=== PATIENT | female | born 1950 | race Caucasian/White ===

== ENCOUNTER 2024-10-21 10:29 | Inpatient (IN) | payer OTHER ==
[2024-10-21 11:19] LABS: Absolute Lymphocytes (CBC) 1.3 K/uL (0.7-4.9); Absolute Monocytes 0.4 K/uL (0.1-1.3); Absolute Neutrophil 3.2 K/uL (1.8-8.0); Basophils % 0.8 % (0-1.3); Eosinophils % 0.6 % (0-4.4); Hematocrit 39.1 % (36.0-45.0); Hemoglobin 13.3 g/dL (12.0-15.0); Lymphocytes % 26.7 % (15.3-44.8); MCH 30.5 pg (27.0-35.0); MCV 89.6 fL (80-100); MPV 7.5 fL (7.6-11.3); Monocytes % 8.1 % (3.3-12.3); Neutrophils % 63.8 % (41.7-73.7); Nucleated Red Blood Cells % 0.1 % (0-0); Platelets 268 thou/uL (152-406); RBC Red Blood Cell Count 4.36 M/uL (3.86-4.86); Red Cell Distribution Width 13.6 % (12.1-15.2)
[2024-10-21 11:25] LABS: PT Prothrombin Time 11.3 SECONDS (10.0-13.0); Protime INR 0.99
[2024-10-21 11:32] LABS: Anion Gap 10.7 mEq/L (5.0-15.0); Potassium 3.7 mEq/L (3.5-5.1); Troponin High Sensitivity 7.3 pg/mL (<58.9)
--- NOTE | 2024-10-21 12:11 | RAD REPORT ---
EXAM: CT Head Brain Wo Cont HISTORY: left sided weakness, leg weakness COMPARISON: None TECHNIQUE: Multiple contiguous axial images were obtained for a CT of the brain without contrast. Sag ittal and coronal reformats were performed. One or more of the following dose reduction techniques were used: Automated exposure control, adjus tment of the mA and kV according to patient size, and iterative reconstruction. Unless otherwise specified, incidental findings do not require dedicated imaging follow-up. FINDINGS: No evidence of hydrocephalus, intracranial hemorrhage, or extra-axial fluid collection. The brain is normal in morphology. The calvarium is intact. The visualized paranasal sinuses and mastoid air cells are essentially clear . IMPRESSION: No evidence of acute intracranial abnormality.
--- NOTE | 2024-10-21 12:16 | RAD REPORT ---
EXAMINATION: CTA HEAD CLINICAL INDICATION: Female, 74 years old. weakness/numbness left side TECHNIQUE: Axial CT images were obtained through the head after intravenous contrast utilizing angiog raphic protocol with 3D post-processing (maximum intensity projection images, volume rendered images and/or shaded surface rendered images). One or more of the following dose reduction technique s were used: Automated exposure control, adjustment of the mA and/or kV according to patient size, and/or iterative reconstruction. Unless otherwise specified, incidental findings do not require dedic ated imaging follow-up. COMPARISON: No prior exam. FINDINGS: ICA: The petrous, cavernous, and supraclinoid segments of the bilateral internal carotid arteries are normal. MEDINA: Anterior cerebral arteries are normal bilaterally. Azygos configuration of the A2 segment, and h ypoplastic appearance of the right A1 segment The anterior communicating artery is patent. MCA: Middle cerebral arteries are normal bilaterally. OTHER SPORTS COACH OR INSTRUCTOR: Short segment of moderate to severe narrowing along the proximal to mid right V2 segment, see co ta image 104/225. Posterior cerebral arteries are otherwise patent proximally. Vertebrobasilar: The vertebral arteries are patent. The basilar artery is normal in appearance. 3D images confirm these findings. IMPRESSION: Short segment of moderate to severe narrowing of the proximal to mid right P2. Otherwise patent proximal vessels of the [place].
--- NOTE | 2024-10-21 12:17 | RAD REPORT ---
EXAMINATION: CT Neck Angio CLINICAL INDICATION: Female, 74 years old. [facility] left sided weakness/numb Bed Name: 7 TECHNIQUE: Axial CT images were obtained from the aortic arch to the skull base after intravenous con trast utilizing angiographic protocol. Multiplanar reformats, as well as 3D post-processing (maximum intensity projection images, volume rendered images and/or shaded surface rendered images) w ere generated and reviewed. One or more of the following dose reduction techniques were used: Automated exposure control, adjustment of the mA and/or kV according to patient size, and/or iterativ e reconstruction. Unless otherwise specified, incidental findings do not require dedicated imaging follow-up. COMPARISON: No prior exam. FINDINGS: AORTA: The imaged aortic arch is normal. Normal three-vessel configuration of the arch. CCA: No artifact The common carotid arteries are patent and normal in caliber. ICA/ECA: Bilateral internal and external carotid arteries are patent. There is no significant interna l carotid artery stenosis. VERTEBRAL: The cervical vertebral arteries are patent to the skull base. Vertebral arteries are codom inant. SOFT TISSUE: No significant neck soft tissue abnormalities. The visualized lung apices are clear. 3D images confirm these findings. IMPRESSION: No significant flow abnormality of the neck vessels is identified. NASCET criteria used to quantify ICA stenosis, with the following grading scheme: Mild 0-49% stenosis Moderate 50-69% stenosis Severe 70-99% stenosis Reference: [place] Symptomatic Carotid Endarterectomy Trial Collaborators; Nai ALVARADO, Cuca CASTANEDA, Consuelo RB, et al. Beneficial effect of carotid endarterectomy in symptomatic patients with high-grade carotid stenosis. N Engl J Med. 1990Apr 08;325(7):445-53.
--- NOTE | 2024-10-21 12:18 | RAD REPORT ---
EXAMINATION: ONE VIEW CHEST XR CLINICAL INDICATION: Female, 74 years old.,left sided weakness TECHNIQUE: Frontal chest projection is submitted. Examination is limited by patient positioning and t echnique. COMPARISON: No prior exam. FINDINGS: The lungs are well inflated and clear. No pneumothorax or sizable effusion. The heart is normal in s ize. Mediastinal contours are unremarkable. IMPRESSION: No acute intrathoracic abnormalities.
--- NOTE | 2024-10-21 13:19 | ER ---
Nurse's Notes [facility] Name: Em Diggs Age: 74 yrs Sex: Female : 1950 Arrival Date: 10/21/2024 Time: 10:29 Bed 13 Private MD: Diagnosis: Cerebral infarction, unspecified;Weakness;Paresthesia of skin Presentation: 10/21 10:52 Chief complaint: Patient states: Sudden onset of L sided numbness, started Friday ph night at 0930, was seen in ED in [place], states that the doctor there did not think it was a stroke. Came to ED today because she was concerned that symptoms are not improving. Coronavirus screen: Vaccine status:. Ebola Screen: No symptoms or risks identified at this time. Initial Sepsis Screen: Does the patient meet any 2 criteria? No. Patient's initial sepsis screen is negative. Does the patient have a suspected source of infection? No. Patient's initial sepsis screen is negative. Risk Assessment: Do you want to hurt yourself or someone else? Patient reports no desire to harm self or others. Onset of symptoms was October 21, 2024. 10:52 Method Of Arrival: Ambulatory ph 10:52 Acuity: LEELEE 3 ph Triage Assessment: 11:03 General: Appears in no apparent distress. comfortable, slender, well groomed, Behavior ph is calm, cooperative, appropriate for age. Pain: Denies pain. Neuro: Level of Consciousness is awake, alert, obeys commands, Oriented to person, place, time, situation, Reports numbness in L face, L arm, L leg. Cardiovascular: Capillary refill < 3 seconds in bilateral fingers Patient's skin is warm and dry. Respiratory: Airway is patent Respiratory effort is even, unlabored, Respiratory pattern is regular, symmetrical. Musculoskeletal: Range of motion: intact in all extremities. 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 - Infectious Disease History:: Denies. - Social history:: Smoking status: Patient denies any tobacco usage or history of. - Family history:: not pertinent. - Hospitalizations: : No recent hospitalization is reported. Screenin:03 [facility] ED Fall Risk Assessment (Adult) History of falling in the last 3 months, ph including since admission No falls in past 3 months (0 pts) Confusion or Disorientation No (0 pts) Intoxicated or Sedated No (0 pts) Impaired Gait No (0 pts) Mobility Assist Device Used No (0 pt) Altered Elimination No (0 pt) Score/Fall Risk Level 0 - 2 = Low Risk Oriented to surroundings, Maintained a safe environment, Hourly rounding (assess needs \T\ fall precautionary measures) done. Abuse screen: Denies threats or abuse. Denies injuries from another. Nutritional screening: No deficits noted. Tuberculosis screening: No symptoms or risk factors identified. 13:00 [place] Swallow Protocol Exclusion Criteria: Unable to remain alert for testing: No NPO ph for medical/surgical reason by provider order No Tracheostomy tube present No No thin liquids due to preexisting dysphagia/baseline modified diet thickened liquids No Brief Cognitive Screen What is your name? Normal, Where are you right now? Normal, What year is it? Normal. Oral Mechanism Examination Facial Symmetry: Normal, Motion: Normal, Lip Closure: Normal, Oral Mechanism Result: Normal. 3 oz Water Swallow Challenge: Pt able to drink all water without stopping, coughing, choking or throat clearing: Yes Result: PASS. Assessment: 11:05 Reassessment: Pt taken to CT. ph 12:00 Reassessment: Patient appears in no apparent distress at this time. Patient and/or ph family updated on plan of care and expected duration. Pain level reassessed. Patient is alert, oriented x 3, equal unlabored respirations, skin warm/dry/pink. Vital Signs: 10:52 BP 155 / 77; Pulse 67; Resp 18; Temp 98.1; Pulse Ox 100% on R/A; Weight 61.23 kg; ph Height 5 ft. 5 in. ; 12:00 BP 137 / 73; Pulse 66; Resp 18; Pulse Ox 100% on R/A; ph 13:00 BP 144 / 74; Pulse 63; Resp 18; Pulse Ox 98% on R/A; ph 14:00 BP 151 / 82; Pulse 64; Resp 18; Pulse Ox 100% on R/A; ph 10:52 Body Mass Index 22.46 (61.23 kg, 165.1 cm) ph [place] Coma Score: 12:00 Eye Response: spontaneous(4). Motor Response: obeys commands(6). Verbal Response: ph oriented(5). Total: 15. NIH Stroke Scale Scores: 10:00 NIHSS Score: 1 ph ED Course: 10:32 Patient arrived in ED. im 10:34 Jersey Lao MD is Attending Physician. rn 10:39 Rosa Elena Christian RN is Primary Nurse. ph 11:01 Triage completed. ph 11:02 Arm band placed on Patient placed in an exam room, on a stretcher, on alarm security or surveillance monitor, ph on pulse oximetry. 11:03 EKG done, by ED staff, reviewed by Jersey Lao MD. ph 11:04 Initial lab(s) drawn, by ED staff, sent to lab. Inserted saline lock: 20 gauge in right ph forearm, using aseptic technique. Blood collected. Flushed with 10 mL NS. 11:05 Patient has correct armband on for positive identification. Bed in low position. Call ph light in reach. Side rails up X 1. Client placed on continuous cardiac and pulse oximetry monitoring. NIBP monitoring applied. ekg monitor on. Door closed. Noise minimized. Warm blanket given. Pillow given. 11:05 Protime (+inr) Sent. ph 11:05 Ptt, Activated Sent. ph 11:05 CBC with Diff Sent. ph 11:05 High Sensitivity Troponin Sent. ph 11:18 CT Head Brain wo Cont In Process Unspecified. EDMS 11:18 CT Head Angio In Process Unspecified. EDMS 11:18 CT Neck Angio In Process Unspecified. EDMS 11:22 Stroke CXR 1 View In Process Unspecified. EDMS 13:18 Claudy Solorio PA is Hospitalizing Provider. rn 15:00 No provider procedures requiring assistance completed. Patient admitted, IV remains in ph place. 19:17 Claudy Solorio PA is Hospitalizing Provider. rn Administered Medications: 13:55 Drug: Aspirin PO Chewable Tablet 324 mg PO once; 81 mg tablets x 4 Route: PO; bp 14:30 Follow up: Response: No adverse reaction ph 13:55 Drug: foLIC Acid IVPB 1 mg IVPB once Route: IVPB; Site: right forearm; bp 14:30 Follow up: Response: No adverse reaction; IV Status: Completed infusion ph Medication: 11:05 VIS not applicable for this client. ph Outcome: 13:18 Decision to Hospitalize by Provider. rn 15:00 Admitted to ER Hold. Please see [facility] for further documentation. ph 15:00 Condition: stable 15:00 Instructed on the need for admit, 10/22 13:33 Patient left the ED. NIH Stroke Scale - NIH Stroke Score Date: 10/21/2024 Time: 10:00 Total Score = 1 10. Dysarthria (speech clarity - read or repeat words) - 0(Normal) 11. Extinction and Inattention (visual/tactile/auditory/spatial/personal) - 0(No abnormality) 1a. Level of Consciousness (LOC) - 0(Alert) 1b. Level of Consciousness (LOC) (Month \T\ Age) - 0(Both) 1c. LOC Commands (Open \T\ Closes Eyes/Rotating Field Assembler) - 0(Both) 2. Best Gaze (Lateral Gaze Paresis) - 0(Normal) 3. Visual Field Loss - 0(No visual loss) 4. Facial Palsy - 0(Normal) 5a. Left Arm: Motor (10-second hold) - 0(No drift) 5b. Right Arm: Motor (10-second hold) - 0(No drift) 6a. Left Leg: Motor (5-second hold - always test supine) - 0(No drift) 6b. Right Leg: Motor (5-second hold - always test supine) - 0(No drift) 7. Limb Ataxia (finger/nose \T\ heel/armstrong - test with eyes open) - 0(Absent) 8. Sensory Loss (pinprick arms/legs/face) - 1(Mild to moderate loss) 9. Best Language: Aphasia (description/naming/reading) - 0(No aphasia) Initials: ph Signatures: Dispatcher [employer] EDMelissa Copeland RN RN iw Jersey Lao MD MD rn Hall, Patricia, RN RN ph Peltier, Brian, RN RN bp Mendoza, Itzel im
--- NOTE | 2024-10-21 13:19 | EDPHYS ---
Physician Documentation [facility] Name: Em Diggs Age: 74 yrs Sex: Female : 1950 Arrival Date: 10/21/2024 Time: 10:29 Bed 13 Private MD: ED Physician Jersey Lao HPI: 10/21 11:34 This 74 yrs old Female presents to ER via Ambulatory with complaints of Numbness - left rn side. 11:34 The patient's problem is reported as paresthesias, in left upper extremity, in left rn lower extremity, in left side of face, weakness, in the left lower extremity. Onset: The symptoms/episode began/occurred 2 day(s) ago. Duration: The episode is continuous. The symptoms are alleviated by nothing. The symptoms are aggravated by nothing. Severity of symptoms: At their worst the symptoms were mild in the emergency department the symptoms are unchanged. The patient has not experienced similar symptoms in the past. Patient reports sudden onset left-sided numbness along with some weakness in the left leg 2 days ago while in [place]. States went to ER and was discharged. Symptoms have persisted. No fall or head injury. No spinal injury. No back pain. No neck pain. No fever or chills.. 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 - Infectious Disease History:: Denies. - Social history:: Smoking status: Patient denies any tobacco usage or history of. - Family history:: not pertinent. - Hospitalizations: : No recent hospitalization is reported. ROS: 11:37 Constitutional: Negative for fever, chills, and weight loss, Neck: Negative for injury, rn pain, and swelling, Cardiovascular: Negative for chest pain, palpitations, and edema, Respiratory: Negative for shortness of breath, cough, wheezing, and pleuritic chest pain, Abdomen/GI: Negative for abdominal pain, nausea, vomiting, diarrhea, and constipation, Back: Negative for injury and pain, MS/Extremity: Negative for injury and deformity, Neuro: Positive for left-sided numbness and tingling with leg weakness Exam: 11:37 Constitutional: This is a well developed, well nourished patient who is awake, alert, rn and in no acute distress. Patient ambulatory to room with assistance of Head/Face: Normocephalic, atraumatic. Cardiovascular: Regular rate and rhythm . No pulse deficits. Respiratory: No increased work of breathing, no retractions or nasal flaring. MS/ Extremity: Pulses equal, no cyanosis. Neurovascular intact. Full, normal range of motion. Equal circumference. Neuro: Awake and alert, GCS 15, oriented to person, place, time, and situation. Cranial nerves II-XII grossly intact. Slight drift of the left lower extremity. No drift of the left upper extremity. Decreased sensation to soft touch left upper and left lower extremity. Left side of face with numbness and decreased sensation. No facial droop. No speech problem. Vital Signs: 10:52 BP 155 / 77; Pulse 67; Resp 18; Temp 98.1; Pulse Ox 100% on R/A; Weight 61.23 kg; ph Height 5 ft. 5 in. ; 12:00 BP 137 / 73; Pulse 66; Resp 18; Pulse Ox 100% on R/A; ph 13:00 BP 144 / 74; Pulse 63; Resp 18; Pulse Ox 98% on R/A; ph 14:00 BP 151 / 82; Pulse 64; Resp 18; Pulse Ox 100% on R/A; ph 10:52 Body Mass Index 22.46 (61.23 kg, 165.1 cm) ph NIH Stroke Scale Scores: 10:00 NIHSS Score: 1 ph [place] Coma Score: 12:00 Eye Response: spontaneous(4). Motor Response: obeys commands(6). Verbal Response: ph oriented(5). Total: 15. MDM: 10:34 Medical Screening Exam initiated rn 10:52 ED course: Onset of symptoms were Friday night. Outside of TNK window if this is a rn cerebral infarction. 13:17 Differential diagnosis: CVA, metabolic disorder. Data reviewed: vital signs, nurses rn notes. Consideration of Admission/Observation Patient was admitted/placed on observation. Escalation of care including admission/observation considered. Counseling: I had a detailed discussion with the patient and/or guardian regarding the historical points, exam findings, and any diagnostic results supporting the discharge/admit diagnosis, lab results, radiology results, the need for further work-up and treatment in the hospital. 10/21 10:49 Order name: CBC with Diff; Complete Time: 11: rn 10/21 10:49 Order name: Basic Metabolic Panel; Complete Time: : rn 10/21 10:49 Order name: Protime (+inr); Complete Time: 11: rn 10/21 10:49 Order name: Ptt, Activated; Complete Time: : rn 10/21 10:49 Order name: High Sensitivity Troponin; Complete Time: : rn 10/21 15:33 Order name: Comprehensive Metabolic Panel [facility] 10/21 15:33 Order name: CBC with Automated Diff [facility] 10/21 15:33 Order name: CBC with Automated Diff [facility] 10/21 15:33 Order name: Lipid Profile [facility] 10/21 15:33 Order name: Lipid Profile [facility] 10/21 16:39 Order name: Thyroid Stimulating Hormone [facility] 10/21 21:00 Order name: Hemoglobin A1c [facility] 10/21 10:49 Order name: CT Head Brain wo Cont; Complete Time: 12: rn 10/21 10:49 Order name: CT Head Angio; Complete Time: 12: rn 10/21 10:49 Order name: CT Neck Angio; Complete Time: 12: rn 10/21 10:49 Order name: Stroke CXR 1 View; Complete Time: 12: rn 10/21 15:33 Order name: Echo with Doppler [facility] 10/21 16:54 Order name: MRI [facility] 10/21 15:33 Order name: IRF Screen [facility] 10/21 15:33 Order name: Physical Therapy Consult [facility] 10/21 15:33 Order name: Speech Therapy Consult [facility] 10/21 15:33 Order name: EKG Electrocardiogram [facility] 10/21 10:49 Order name: IV Start; Complete Time: :10/21 10:49 Order name: Accucheck; Complete Time: :10/21 10:49 Order name: Cardiac monitoring; Complete Time: :10/21 10:49 Order name: EKG - Nurse/Tech; Complete Time: 11:10/21 10:49 Order name: Labs collected and sent; Complete Time: :10/21 10:49 Order name: NPO; Complete Time: 11:05 rn 10/21 10:49 Order name: O2 Per Protocol; Complete Time: 11:05 rn 10/21 10:49 Order name: O2 Sat Monitoring; Complete Time: 11:05 rn 10/21 10:49 Order name: Stroke Swallow Screen; Complete Time: 12:28 rn Administered Medications: 13:55 Drug: Aspirin PO Chewable Tablet 324 mg PO once; 81 mg tablets x 4 Route: PO; bp 14:30 Follow up: Response: No adverse reaction ph 13:55 Drug: foLIC Acid IVPB 1 mg IVPB once Route: IVPB; Site: right forearm; bp 14:30 Follow up: Response: No adverse reaction; IV Status: Completed infusion ph Disposition Summary: 10/21/24 13:18 Hospitalization Ordered Notes: Hospitalization Status: Inpatient Admission rn Condition: Stable rn Problem: new rn Symptoms: are unchanged rn Bed/Room Type: Standard rn Provider: Claudy Solorio(10/21/24 19:17) rn Location: Telemetry/MedSurg (Inpatient)(10/22/24 12:53) [email or web address] Room Assignment: [facility](10/22/24 12:53) jl7 Diagnosis - Cerebral infarction, unspecified rn - Weakness rn - Paresthesia of skin rn Forms: - Medication Reconciliation Form rn - SBAR form rn - Leadership Thank You Letter rn NIH Stroke Scale - NIH Stroke Score Date: 10/21/2024 Time: 10:00 Total Score = 1 10. Dysarthria (speech clarity - read or repeat words) - 0(Normal) 11. Extinction and Inattention (visual/tactile/auditory/spatial/personal) - 0(No abnormality) 1a. Level of Consciousness (LOC) - 0(Alert) 1b. Level of Consciousness (LOC) (Month \T\ Age) - 0(Both) 1c. LOC Commands (Open \T\ Closes Eyes/Manager Pmo) - 0(Both) 2. Best Gaze (Lateral Gaze Paresis) - 0(Normal) 3. Visual Field Loss - 0(No visual loss) 4. Facial Palsy - 0(Normal) 5a. Left Arm: Motor (10-second hold) - 0(No drift) 5b. Right Arm: Motor (10-second hold) - 0(No drift) 6a. Left Leg: Motor (5-second hold - always test supine) - 0(No drift) 6b. Right Leg: Motor (5-second hold - always test supine) - 0(No drift) 7. Limb Ataxia (finger/nose \T\ heel/armstrong - test with eyes open) - 0(Absent) 8. Sensory Loss (pinprick arms/legs/face) - 1(Mild to moderate loss) 9. Best Language: Aphasia (description/naming/reading) - 0(No aphasia) Initials: ph Signatures: Dispatcher [employer] EDMS Jersey Lao MD MD rn Hall, Patricia RN RN ph Kirby Orozco RN RN jl7 Will Guillaume, RN RN Mary Chery rv1 Corrections: (The following items were deleted from the chart) 10:50 10:50 Head Brain Wo Cont+CT.RAD.BRZ ordered. EDMS EDMS 10:50 10:50 CBC+H.LAB.BRZ ordered. EDMS EDMS 10:50 10:50 BASIC METABOLIC PANEL+C.LAB.BRZ ordered. EDMS EDMS 10:50 10:50 PROTIME (+INR)+COAG.LAB.BRZ ordered. EDMS EDMS 10:50 10:50 PTT, ACTIVATED+COAG.LAB.BRZ ordered. EDMS EDMS 10:50 10:50 Troponin High Sensitivity+C.LAB.BRZ ordered. EDMS EDMS 10:50 10:50 Head Angio+CT.RAD.BRZ ordered. EDMS EDMS 10:50 10:50 Neck Angio+CT.RAD.BRZ ordered. EDMS EDMS 10:50 10:50 CT-STROKE BRAIN W/O CONTRAST+CT.RAD.BRZ ordered. EDMS EDMS 10:50 10:50 Chest Single View+RAD.RAD.BRZ ordered. EDMS EDMS 19:17 13:18 Claudy Solorio rn rn 19:17 13:18 Telemetry/MedSurg (Inpatient) rn rv1 19:17 13:18 rn rv1 10/22 12:53 10/21 19:17 BR ER HOLD [facility] jl7 10/22 12:53 10/21 19:17 ERHOLD- [facility]
[2024-10-21] MEDS ORDERED: ASPIRIN 81 MG CHEWABLE TABLET ONE (13:50)
[2024-10-21] MEDS ORDERED: FOLIC ACID 5 MG/ML VIAL ONE (13:51)
--- NOTE | 2024-10-21 14:05 | P.HP ---
Certification for Inpatient With expected LOS: >2 Midnights Patient will require the following post-hospital care: None Practitioner: I am a practitioner with admitting privileges, knowledge of patient current condition, hospital course, and medical plan of care. Services: Services provided to patient in accordance with Admission requirements found in Title 42 Section 412.3 of the Code of Federal Regulations Patient History Date of Service: 10/21/24 Reason for admission: Left-sided numbness and weakness History of Present Illness: 74-year-old patient presents with left-sided tingling and numbness for the last 2 days, she was traveling out of state at the time, she went to the ER in [place] 2 days back, they did not find any acute problem, discharged her to go home, after she came home her symptoms were not getting any better, now she feels like mild weakness on the left side, so she presented to the emergency room. She has chronic issues with sinusitis, chronic constipation and also some bleeding from hemorrhoids but no recent change. She denies any speech or swallowing trouble. She denies any blurry or double vision. Other than that she denies any other acute complaints. No headache or blackouts. No cough or sputum production. No chest pain or shortness of breath. No nausea or vomiting. No abdominal pain. No blood in the urine. No fever. No lower extremity edema. No joint pains. No recent change in the weight. Review of systems: All other 10 point review of systems are negative other than as mentioned above. Allergies and medications: Reviewed, as per [facility] EMR. Past medical history: Hypothyroidism Past surgical history: Right breast cyst removal Social history: No smoking or drugs. Have a couple of drinks every day. Family history: No family history of NC or CVA Physical examination: Vital signs: Reviewed, as per EMR. General appearance: Alert and comfortable HEENT: Extraocular movements intact, oral mucosa moist. CVS: Normal S1-S2 Lungs: Clear to auscultation bilaterally Abdomen: Soft, bowel sounds present, no tenderness Extremities: No lower extremity edema GOAL UMPIRE: AAO x 3/3, Moves all 4 extremities, Right side UE and LE power 5/5, left side UE and LE power 4-5/5. No facial weakness. Musculoskeletal: No obvious joint swelling or tenderness Home medications list reviewed: Yes - Past Medical/Surgical History Diabetic: No Physical Examination - Studies Laboratory Data (last 24 hrs) 10/21/24 10/21/24 10/21/24 11:05 11:05 11:05 WBC 5.00 Hgb 13.3 Hct 39.1 Plt Count 268 PT 11.3 INR 0.99 APTT 32.0 Sodium 137 Potassium 3.7 BUN 11 Creatinine 0.71 Glucose 105 Assessment and Plan - Problems (Diagnosis) (1) Acute stroke due to ischemia Current Visit: Yes Status: Acute - Plan Assesment and plan: 1. Acute stroke with left-sided numbness and weakness: Neurology consult requested, start aspirin and statin for now, CT head and CTA head and neck negative, will get an MRI scan and echocardiogram, will request physical therapy and speech evaluation, further management as per neurology. Check Lipid profile tomorrow. 2. Hypothyroidism: Continue levothyroxine. 3. 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 DVT Prophylaxis: Lovenox Code status: full code I Discussed all of the above-mentioned plan with the patient, and her at bedside, they both understand and agrees with the plan. I discussed advanced d irectives with the patient, her Elijah is the POA. - Advance Directives Does patient have a Living Will: No Does patient have a Durable POA for Healthcare: No
[2024-10-21] MEDS ORDERED: ACETAMINOPHEN 500 MG TAB PO PRN (15:23)
[2024-10-21] MEDS ORDERED: ZOLPIDEM TARTRATE 5 MG TABLET PO PRN (15:23)
[2024-10-21] MEDS: NA CHLORIDE 0.9% 1,000 ML IV SCH (16:00)
[2024-10-21] MEDS: ENOXAPARIN 40 MG/0.4 ML SQ SCH (16:00)
[2024-10-21 16:34] LABS: Albumin 3.6 g/dL (3.4-5.0); Albumin/Globulin Ratio 1.2 (1.1-1.8); Anion Gap 9.5 mEq/L (5.0-15.0); Bilirubin Total 0.4 mg/dL (0.2-1.0); Globulin 3.1 g/dL (2.3-3.5); Potassium 3.5 mEq/L (3.5-5.1); Protein, Total 6.7 g/dL (6.4-8.2)
--- NOTE | 2024-10-21 16:53 | RAD REPORT ---
EXAMINATION: MRI BRAIN WITHOUT CONTRAST CLINICAL INDICATION: Female, 74 years old. left sided numbness and weakness TECHNIQUE: Multiplanar multisequence MR images of the brain were obtained without intravenous contras t. Unless otherwise specified, incidental findings do not require dedicated imaging follow-up. [id number]. COMPARISON: Same-day head CT FINDINGS: INTRACRANIAL: Small acute infarct in the right thalamic/posterior limb of the internal capsule region measuring approximately 8 x 5 mm. No significant mass effect or midline shift.No hydrocephalus. Mild chronic small vessel ischemic changes. VASCULATURE: Normal signal voids in the larger intracranial arteries and dural venous sinuses. SINUSES: The paranasal sinuses are clear.No mastoid effusions. BONE: The marrow signal pattern is within normal limits. IMPRESSION: Small acute right basal ganglia/thalamic lacunar infarct.
[2024-10-21 17:06] VITALS: BMI 22.4
[2024-10-21] MEDS ORDERED: NA CHLORIDE 0.9% 1,000 ML ONE (18:13)
[2024-10-21] MEDS ORDERED: ENOXAPARIN 40 MG/0.4 ML SQ ONE (18:13)
[2024-10-21] MEDS: ATORVASTATIN 40 MG TAB PO SCH (21:00)
[2024-10-21] MEDS ORDERED: ATORVASTATIN 40 MG TAB ONE (21:41)
[2024-10-22 04:43] LABS: Absolute Eosinophils 0.1 K/uL (0-0.5); Absolute Lymphocytes (CBC) 2.6 K/uL (0.7-4.9); Absolute Monocytes 0.5 K/uL (0.1-1.3); Absolute Neutrophil 2.8 K/uL (1.8-8.0); Basophils % 0.6 % (0-1.3); Eosinophils % 1.7 % (0-4.4); Hematocrit 36.3 % (36.0-45.0); Hemoglobin 12.5 g/dL (12.0-15.0); MCH 30.3 pg (27.0-35.0); MCHC 34.3 g/dL (32.0-36.0); MCV 88.2 fL (80-100); MPV 7.5 fL (7.6-11.3); Monocytes % 7.8 % (3.3-12.3); Neutrophils % 46.9 % (41.7-73.7); Platelets 268 thou/uL (152-406); RBC Red Blood Cell Count 4.12 M/uL (3.86-4.86); Red Cell Distribution Width 13.8 % (12.1-15.2)
[2024-10-22] MEDS ORDERED: CLOPIDOGREL 75 MG TABLET ONE (08:20)
[2024-10-22] MEDS ORDERED: ENOXAPARIN 40 MG/0.4 ML SQ ONE (08:21)
[2024-10-22] MEDS ORDERED: ASPIRIN 81 MG CHEWABLE TABLET ONE (08:21)
[2024-10-22] MEDS ORDERED: NA CHLORIDE 0.9% 1,000 ML ONE (08:47)
[2024-10-22] MEDS: CLOPIDOGREL 75 MG TABLET PO SCH (09:00)
[2024-10-22] MEDS: ASPIRIN EC 81 MG TAB PO SCH (09:00)
--- NOTE | 2024-10-22 10:49 | P.PN ---
Subjective Date of Service: 10/22/24 Chief Complaint: Left-sided numbness and weakness Subjective: No chest pain or shortness of breath. No nausea or vomiting. No abdominal pain. No obvious bleeding other than hemorrhoidal bleeding. Looks comfortable in the bed. c/o Left-sided tingling, numbness and weakness, no lianna or improvement. Objective: General appearance: Alert and comfortable CVS: Normal S1 and S2 Lungs: Clear to auscultation bilaterally Abdomen: Soft, bowel sounds present, no tenderness Extremities: No pedal edema CLINICAL OUTCOMES MANAGER: No Facial weakness, moves all 4 extremities, right side 5/ 5, left side 4- 5/5 Physical Examination - Vital Signs Temperature: 97.4 F Blood Pressure: 127/65 Pulse: 62 Respirations: 18 Pulse Ox (%): 100 - Studies Laboratory Data (last 24 hrs) 10/21/24 10/21/24 10/21/24 11:05 11:05 11:05 WBC 5.00 Hgb 13.3 Hct 39.1 Plt Count 268 PT 11.3 INR 0.99 APTT 32.0 Sodium 137 Potassium 3.7 BUN 11 Creatinine 0.71 Glucose 105 Assessment And Plan - Current Problems (Diagnosis) (1) Acute stroke due to ischemia Current Visit: Yes Status: Acute - Plan Assesment and plan: 1. Acute stroke with left-sided numbness and weakness: Neurology consult requested, aspirin, plavix and statin for now, CT head and CTA head and neck negative -MRI scan showed a right basal ganglia and thalamic stroke -echocardiogram pending -physical therapy at bedside, they are recommending home with outpatient therapy -further management as per neurology. 2. Hypothyroidism: Continue levothyroxine. 3. 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 DVT Prophylaxis: Lovenox Code status: full code I Discussed all of the above-mentioned plan with the patient, and her at bedside, probably home tomorrow, if echo looks good and cleared by neurology. Discharge Plan: Home Plan to discharge in: 24 Hours
--- NOTE | 2024-10-22 12:57 | ECHO ---
HEIGHT: 5 ft 5 in WEIGHT: 134 lb 15.825 oz DATE OF STUDY: 10/22/[address]: Claudy Solorio 2-DIMENSIONAL: YES M.MODE: YES DOPPLER: YES COLOR FLOW: YES TDS: PORTABLE: YES DEFINITY: BUBBLE STUDY: DIAGNOSIS: STROKE CARDIAC HISTORY: CATHERIZATION: NO SURGERY: NO PROSTHETIC VALVE: NO PACEMAKER: NO MEASUREMENTS (cm) DIASTOLIC (NORMALS) SYSTOLIC (NORMALS) IVSd 0.8 (0.6-1.2) LA Diam 2.6 (1.9-4.0) LVEF 60-65% LVIDd 4.2 (3.5-5.7) LVIDs 3.0 (2.0-3.5) %FS 28% LVPWd 0.8 (0.6-1.2) Ao Diam 2.9 (2.0-3.7) 2 DIMENSIONAL ASSESSMENT: RIGHT ATRIUM: NORMAL LEFT ATRIUM: NORMAL RIGHT VENTRICLE: NORMAL LEFT VENTRICLE: NORMAL TRICUSPID VALVE: TRACE TRICUSPID REGURGITATION MITRAL VALVE: NORMAL PULMONIC VALVE: NORMAL AORTIC VALVE: TRACE AORTIC REGURGITATION PERICARDIAL EFFUSION: NONE AORTIC ROOT: NORMAL LEFT VENTRICULAR WALL MOTION: NORMAL DOPPLER/COLOR FLOW: NORMAL COMMENTS: 1. NORMAL LEFT VENTRICULAR SYSTOLIC FUNCTION, EJECTION FRACTION 60-65%, NORMAL WALL MOTION 2. NORMAL DIASTOLIC FUNCTION TECHNOLOGIST: DERREK CAICEDO
[2024-10-22 13:57] VITALS: O2SAT 100
[2024-10-22 16:30] VITALS: BP 144/74
[2024-10-22 16:39] VITALS: TEMP 98.2
--- NOTE | 2024-10-22 16:50 | P.DS ---
Admission Date: 10/21/24 Discharge Date: 10/22/24 Disposition: ROUTINE DISCHARGE Discharge Condition: GOOD Reason for Admission: Left-sided numbness and weakness Consultations: Dr. Mitchell Brief History of Present Illness: 74-year-old patient presents with left-sided tingling and numbness for the last 2 days, she was traveling out of state at the time, she went to the ER in [place] 2 days back, they did not find any acute problem, discharged her to go home, after she came home her symptoms were not getting any better, now she feels like mild weakness on the left side, so she presented to the emergency room. She has chronic issues with sinusitis, chronic constipation and also some bleeding from hemorrhoids but no recent change. She denies any speech or swallowing trouble. She denies any blurry or double vision. Other than that she denies any other acute complaints. Hospital Course: - Current Problems (Diagnosis) (1) Acute stroke due to ischemia Vital Signs/Physical Exam: Temp Pulse Resp BP Pulse Ox 98.2 F 59 12 144/74 H 99 10/22/24 16:00 10/22/24 16:00 10/22/24 16:00 10/22/24 16:00 10/22/24 16:00 General: Alert, In no apparent distress, Oriented x3 HEENT: Atraumatic, PERRLA Neck: Supple, JVD not distended Respiratory: Clear to auscultation bilaterally, Normal air movement Cardiovascular: Regular rate/rhythm, Normal S1 S2 Gastrointestinal: Normal bowel sounds Musculoskeletal: No tenderness Integumentary: No rashes Neurological: Normal speech, Abnormal strength (Mild left sided weakness), Abnormal sensation Laboratory Data at Discharge: WBC 6.00 thou/uL (4.3-10.9) 10/22/24 04:12 Hgb 12.5 g/dL (12.0-15.0) 10/22/24 04:12 Hct 36.3 % (36.0-45.0) 10/22/24 04:12 Plt Count 268 thou/uL (152-406) 10/22/24 04:12 PT 11.3 SECONDS (10.0-13.0) 10/21/24 11:05 INR 0.99 10/21/24 11:05 APTT 32.0 SECONDS (24.3-36.9) 10/21/24 11:05 Sodium 139 mEq/L (136-145) 10/21/24 16:00 Potassium 3.5 mEq/L (3.5-5.1) 10/21/24 16:00 BUN 10 mg/dL (7-18) 10/21/24 16:00 Creatinine 0.58 mg/dL (0.55-1.02) 10/21/24 16:00 Glucose 105 mg/dL (74-106) 10/21/24 16:00 Total Bilirubin 0.4 mg/dL (0.2-1.0) 10/21/24 16:00 AST 12 U/L (15-37) L 10/21/24 16:00 ALT 19 U/L (13-56) 10/21/24 16:00 Alkaline Phosphatase 50 U/L (45-117) 10/21/24 16:00 Triglycerides 66 mg/dL (<150) 10/22/24 04:12 Cholesterol 209 mg/dL (<200) H 10/22/24 04:12 HDL Cholesterol 87 mg/dL (40-60) H 10/22/24 04:12 Cholesterol/HDL Ratio 2.40 10/22/24 04:12 Home Medications: Thyroid,Pork [Piano Machine Operator Thyroid 120] 60 mg PO DAILY 10/21/24 Atorvastatin Calcium [Lipitor] 40 mg PO BEDTIME #60 tab 10/22/24 Clopidogrel Bisulfate [Plavix*] 75 mg PO DAILY #30 tab 10/22/24 New Medications: Atorvastatin Calcium [Lipitor] 40 mg PO BEDTIME #60 tab Clopidogrel Bisulfate [Plavix*] 75 mg PO DAILY #30 tab Physician Discharge Instructions: Patient was admitted to the hospital for left-sided weakness and numbness. She was found to have a small acute right basal ganglia/thalmic lacunar infarct. She also was found to have a short segment of moderate to severe narrowing of the proximal to mid right P2 segment on her CT head angio. Echocardiogram was performed showed normal LVEF of 60 to 65%, normal wall motion and normal diastolic function. Patient was evaluated by neurology who recommends outpatient PT/OT as well as aspirin, Plavix and a statin. Please follow-up with a local primary care doctor in the next 1 to 2 weeks Please follow-up with Dr. Mitchell or another neurologist within 2 weeks Prescriptions for Plavix and atorvastatin sent to [facility] in [place] You should also take a baby aspirin 81 mg daily which you can get over-the- counter Diet: AHA Activity: Ad karen Followup: Diego Montoya MD [ACTIVE - CAN ADMIT] - Devon Mitchell MD [ASSOCIATE-ACTIVE - CAN ADMIT] - Monroe Henry MD [ACTIVE - CAN ADMIT] - WILLIS RIOS [ACTIVE - CAN ADMIT] - NONE,NONE [Primary Care Provider] - 1-2 Weeks Time spent managing pt's care (in minutes): 45
--- NOTE | 2024-10-22 21:28 | CON ---
Reason For Consultation: Consultation called because of a stroke. History Of Present Illness: Ms. Diggs is 74-year-old patient with history of hypothyroidism, who was generally in good health and goes gambling on a regular basis and smoke-filled casinos and may dr ink beer while gambling. She developed a couple of days ago prior to her admission while traveling a nd gambling in [place] some left-sided numbness and weakness and tingling present for around 2 days . She did not immediately seek medical attention. However, she came home and symptoms did not impro ve and she developed some mild weakness. She came to the emergency room for evaluation. Her evaluat ion at that point was for a stroke workup. She eventually received a brain MRI, which identified a s mall acute infarct in the right basal ganglia, thalamic area, likely a lacunar infarct measuring 8 x 5 mm. The lacunar infarct did explain the patient's left-sided symptoms. CT angiogram of her head a nd neck showed [id number] narrowing of the proximal to mid right P2 branch of the posterior c erebral artery, which may be a branch takeoff supplying the region of the right basal ganglia and amina lamic area and is possible etiology of the patient's ischemic stroke. Laboratory Studies: Showed normal complete blood count differential. Coagulation panel, INR 0.99. Her basic metabolic panel was unremarkable. Cholesterol elevated total to 209, LDL cholesterol is 10 9, HDL cholesterol 87. Her cholesterol HDL ratio 2.4. TSH 2.69. Liver function studies unremarkabl e. Her echocardiogram was unremarkable with ejection fraction of 60% to 65%, normal wall motion. Ch est x-ray showed no acute abnormalities. She is now on aspirin 81 mg daily, Plavix 75 mg daily, and did receive the statin, Lipitor 40 mg at b edtime, and Lovenox for DVT prophylaxis. Past Medical History: As noted above, hypothyroidism. Allergies: PENICILLIN. Medications At Home: Thyroid medication 60 mg tablet daily plus hormone replacement. Past Surgical History: Right breast cyst removal. Family History: Noncontributory. Social History: She does drink beer and goes to [place] areas a few times a year. So may consume some wine. Review of Systems: She admits to the tingling and pins and needles sensation in the left face and arm more than her leg. Also very subtle weakness in the same distribution. Otherwise, no fevers, chills, nausea, vomiting , myalgias, arthralgias, rash, headache, weight change and she is generally a healthy patient. Physical Examination: Vital Signs: Blood pressure ranged from 137 to 151 over 73 to 74, pulse 59 to 66, respiratory rate 1 2 to 18, temperature 98.2, O2 saturation 99% to 100%. General: Ms. Diggs is resting in bed. Friend at bedside. HEENT: She is normocephalic, atraumatic. Sclerae anicteric. Oropharynx pink and moist. Neck: Supple. Chest: Clear. Heart: Regular. Extremities: Show no clubbing, cyanosis, or edema. Neurological: She has a subtle decrease in light touch temperature in the left face and arm with dys esthesia to light touch, but fully strong and symmetric face with equal excursions on smiling. Stren gth is 5/5 proximally and distally in upper and lower extremities. Coordination intact in upper and lower extremities. Gait, she has good stance and stride. Slight tendency to the left loss balance. Assessment: Ms. Diggs is a 74-year-old patient with alcohol consumption and secondhand cigarette exposure. She has hypothyroidism and has had a right likely thalamic stroke causing some sensory dis turbance more than weakness in the left face and arm. The risk factors for stroke were discussed at length. Modifications for stroke risk factors also discussed at length. She should be on aspirin an d Plavix along with folic acid and statin for about 2-3 months and then may just be on the aspirin by itself 81 mg daily. She may benefit from outpatient speech therapy and physical therapy. She may b e discharged home and should follow up in Dr. Mitchell's clinic within the month. ELLE/SHUBHAM Voice ID: [id number] Report ID: [id number]
--- NOTE | 2024-10-25 12:17 | EKG ---
Test Date: 2024-10-21 Test Time: 10:57:23 Horse Wrangler: BP MEASUREMENT RESULTS: Intervals: Rate: 63 DC: 136 QRSD: 84 QT: 402 QTc: 411 [place]: P: 63 DC: 136 QRS: 58 T: 73 INTERPRETIVE STATEMENTS: Normal sinus rhythm Normal ECG No previous ECG available for comparison Electronically Signed On 10-25-24 12:09:19 SALES PROMOTION REPRESENTATIVE by Yemi Reynaga
== END 2024-10-22 18:33 | disposition home or self-care (01) | DRG 65 ==
LOC: ER 10:29 → ERHOLD 15:23 → 2ND 10-22 13:18
PROVIDERS: ADMIT Hospitalist; ATTEND Hospitalist
DX: I63.9 Cerebral infarction, unspecified (principal); G81.94 Hemiplegia, unspecified affecting left nondominant side; E03.9 Hypothyroidism, unspecified; K64.9 Unspecified hemorrhoids; K59.09 Other constipation; R20.2 Paresthesia of skin; R29.701 NIHSS score 1; Z88.0 Allergy status to penicillin; Z79.02 Long term (current) use of antithrombotics/antiplatelets; Z77.29 Contact with and (suspected) exposure to other hazardous substances; Z79.899 Other long term (current) drug therapy
CPT/HCPCS: 36415; 70450; 70496; 70498; 70551; 71045; 80048; 80053; 80061; 83036; 84443; 84484; 85025; 85610; 85730; 92610; 93005; 93306; 96365; 97161; 99285; J1650; J7030; Q9967